=== PATIENT | male | born 1960 | race African-American/Black ===

== ENCOUNTER 2018-01-04 10:25 | Day surgery (SDC) | payer MEDICAID ==
[~2018-01-04] VITALS: Ht 182.9 cm; Wt 77.1 kg
[2018-01-04] MEDS ORDERED: LACTATED RINGERS 1,000 ML IV SCH (12:15)
[2018-01-04] MEDS ORDERED: PROPOFOL 200MG/20ML VIAL IV ONE ×4 (12:55→13:57)
[2018-01-04] MEDS ORDERED: SIMETHICONE 40 MG/0.6 ML 30ML ONE (13:12)
[2018-01-04] MEDS ORDERED: GLYCOPYRROLATE 0.2 MG/ML 2ML VIAL ONE (13:21)
[2018-01-04] MEDS ORDERED: ONDANSETRON HCL 4MG/2ML INJ IV NR (15:30)
[2018-01-04] MEDS ORDERED: KETOROLAC 30MG/ML VIAL IV PRN (15:30)
== END 2018-01-04 17:00 | disposition home or self-care (01) ==
LOC: OR 10:25
PROVIDERS: ATTEND Internal Medicine Gastroenterology
DX: K62.6 Ulcer of anus and rectum (principal); K29.50 Unspecified chronic gastritis without bleeding
CPT/HCPCS: 43239; 45380; J3490; J7030; J7120; 88305; 88313; J2704